=== PATIENT | female | born 1940 | race Caucasian/White ===

== ENCOUNTER 2017-12-19 17:21 | Emergency (ER) | payer OTHER ==
[2017-12-19 19:02] LABS: ABS Basophils 0 10^3/ul (0-0.2); ABS Eosinophils 0.2 10^3/ul (0-0.6); ABS Lymphocytes 0.9 10^3/ul (1.0-4.8); ABS Monocytes 0.5 10^3/ul (0-0.8); ABS Neutrophils 4.3 10^3/ul (1.5-7.7); ABS Nucleated RBC 0 10^3/ul; Eosinophil % 3.3 % (0-6); Hematocrit 42 % (35-47); Hemoglobin 14.6 g/dl (12.0-16.0); Lymphocyte % 15.4 % (25-47); Mean Corpuscular HGB Conc 35 g/dl (31-36); Mean Corpuscular Hemoglobin 33 pg (27-31); Mean Corpuscular Volume 94 fL (80-97); Mean Platelet Volume 8.3 um3 (7.4-10.4); Nucleated Red Blood Cells % 0.1; Platelet Count 175 10^3/ul (150-450); Red Blood Count 4.46 10^6/ul (4.00-5.40); Red Cell Distribution Width 14 % (10.5-15); White Blood Count 5.9 10^3/ul (3.5-10.8)
[2017-12-19 19:13] LABS: EGFR Non-African American 59.5 (>60)
--- NOTE | 2017-12-19 20:16 | RAD ---
INDICATION: LEFT leg swelling, redness, rash. COMPARISON: No relevant prior exams available on the [facility] PACS for comparison. TECHNIQUE: Rowe scale, color Doppler, and spectral analysis of the deep veins of the LEFT lower extremity. Vessel compression, phasicity, and augmentation assessed. REPORT: The LEFT common femoral, great saphenous, profunda femoral, femoral, popliteal, peroneal, and posterior tibial veins are patent. Patency of the RIGHT common femoral vein documented. IMPRESSION: No evidence for LEFT lower extremity deep venous thrombosis.
--- NOTE | 2017-12-19 20:19 | ED ---
Lower Extremity - HPI Summary HPI Summary: Pt is a 77 y/o F w/ c/o left leg erythema, edema, and pain. Per triage, she notes that erythema has been present since last week. In room, she states that leg pain began, a few days ago. On triage, pain is rated 6/10. Yesterday, she states she measured a 102 fever which lasted 18 hours. Upon waking up this morning, she states that erythema has crawled up her leg and rash is present, all over her body. Pt notes she has finished taking prednisone 3 months for organizing PNA and that she also had a biopsy. She denies Hx of diabetes and states her right leg is presently fine. Pt is allergic to certain topical creams , sulfur medications, and penicillin. - History of Current Complaint Chief Complaint: EDExtremityLower Stated Complaint: LT LEG SWOLLEN Time Seen by Provider: 12/19/17 20:15 Hx Obtained From: Patient Onset of Pain: Days - "a few days ago" on left leg Onset/Duration: Weeks - per triage, states erythema began last week Severity Currently: Moderate Pain Intensity: 6 Pain Scale Used: 0-10 Numeric - 6/10 Location: Is Discrete @ - Erythema, edema and pain located at left leg. Pt reported erythema has migrated to "rest of body" sometime last night Associated Signs And Symptoms: Positive: Swelling - left leg, Redness - left leg , migration to "rest of body" sometime last night according to Pt, Fever - pt reports 102 fever yesterday, Other - left leg pain - Allergies/Home Medications Allergies/Adverse Reactions: Allergies Allergy/AdvReac Type Severity Reaction Status Date / Time dextromethorphan Allergy Rash Verified 12/19/17 17:39 [From Guiatuss] guaifenesin [From Guiatuss] Allergy Rash Verified 12/19/17 17:39 Penicillins Allergy Rash Verified 12/19/17 17:39 pseudoephedrine Allergy Rash Verified 12/19/17 17:39 [From Guiatuss] Sulfa (Sulfonamide Allergy Hives Verified 12/19/17 17:39 Antibiotics) PMH/Surg Hx/FS Hx/Imm Hx Endocrine/Hematology History: Reports: Hx Thyroid Disease Cardiovascular History: Reports: Hx Hypertension Infectious Disease History: No Infectious Disease History: Denies: Traveled Outside the [place] in Last 30 Days - Family History Known Family History: Negative: Blood Disorder - Social History Alcohol Use: None Substance Use Type: Reports: None Smoking Status (MU): Never Smoked Tobacco Review of Systems Positive: Fever - on triage, 98.2 Cardiovascular: Negative Respiratory: Negative Positive: Other - Left leg erythema, pain, and edema. Pt reports migration of erythema to "rest of body" sometime last night All Other Systems Reviewed And Are Negative: Yes Physical Exam - Summary Physical Exam Summary: Appearance: Well-appearing, Well-nourished, lying in bed comfortably Skin: Left leg erythema and swelling above ankle and below thigh, no fluctuance nor lymphangitic streaking Eyes: sclera anicteric, no conjunctival pallor ENT: mucous membranes moist, pharynx appears normal Neck: Supple, nontender Respiratory: Clear to auscultation, no signs of respiratory distress Cardiovascular: Normal S1, S2. No murmurs. Normal distal pulses in tibial and radial bilaterally. Abdomen: Soft, nontender, normal active bowel sounds present Musculoskeletal: Normal, Strength/ROM Intact Neurological: A&Ox3, awake and alert, mentation is normal, speech is fluent and appropriate Psychiatric: affect is normal, does not appear anxious or depressed Triage Information Reviewed: Yes Vital Signs On Initial Exam: Initial Vitals Temp Pulse Resp BP Pulse Ox 98.2 F 74 17 131/69 96 12/19/17 17:34 12/19/17 17:34 12/19/17 17:34 12/19/17 17:34 12/19/17 17:34 Vital Signs Reviewed: Yes Diagnostics - Vital Signs Vital Signs Temp Pulse Resp BP Pulse Ox 12/19/17 19:30 98.8 F 66 16 124/72 98 12/19/17 17:34 98.2 F 74 17 131/69 96 - Laboratory Lab Results: Lab Results 12/19/17 12/19/17 12/19/17 Range/Units 18:49 18:49 19:59 WBC 5.9 (3.5-10.8) 10^3/ul RBC 4.46 (4.00-5.40) 10^6/ul Hgb 14.6 (12.0-16.0) g/dl Hct 42 (35-47) % MCV 94 (80-97) fL MCH 33 H (27-31) pg MCHC 35 (31-36) g/dl RDW 14 (10.5-15) % Plt Count 175 (150-450) 10^3/ul MPV 8.3 (7.4-10.4) um3 Neut % (Auto) 72.1 (38-83) % Lymph % (Auto) 15.4 L (25-47) % [place] % (Auto) 8.6 H (0-7) % Eos % (Auto) 3.3 (0-6) % Baso % (Auto) 0.6 (0-2) % Absolute Neuts (auto) 4.3 (1.5-7.7) 10^3/ul Absolute Lymphs (auto) 0.9 L (1.0-4.8) 10^3/ul Absolute Monos (auto) 0.5 (0-0.8) 10^3/ul Absolute Eos (auto) 0.2 (0-0.6) 10^3/ul Absolute Basos (auto) 0 (0-0.2) 10^3/ul Absolute Nucleated RBC 0 10^3/ul Nucleated RBC % 0.1 Sodium 138 (135-145) mmol/L Potassium 4.4 (3.5-5.0) mmol/L Chloride 100 L (101-111) mmol/L Carbon Dioxide 27 (22-32) mmol/L Anion Gap 11 (2-11) mmol/L BUN 22 (6-24) mg/dL Creatinine 0.92 (0.51-0.95) mg/dL Est GFR ( Amer) 72.0 (>60) Est GFR (Non-Af Amer) 59.5 (>60) BUN/Creatinine Ratio 23.9 H (8-20) Glucose 92 (70-100) mg/dL Lactic Acid 1.6 (0.5-2.0) mmol/L Calcium 9.8 (8.6-10.3) mg/dL Total Bilirubin 1.00 (0.2-1.0) mg/dL AST 18 (13-39) U/L ALT 14 (7-52) U/L Alkaline Phosphatase 56 (34-104) U/L C-Reactive Protein 183.99 H (<8.01) mg/L Total Protein 6.9 (6.4-8.9) g/dL Albumin 4.3 (3.2-5.2) g/dL Globulin 2.6 (2-4) g/dL Albumin/Globulin Ratio 1.7 (1-3) Result Diagrams: 12/19/17 18:49 12/19/17 18:49 Lab Statement: Any lab studies that have been ordered have been reviewed, and results considered in the medical decision making process. Re-Evaluation - Re-Evaluation First Eval Re-Evaluation Time: 20:30 Comment: Pt informed of diagnosis and told they would be discharged Lower Extremity Course/Dx - Diagnoses Provider Diagnoses: Cellulitis and abscess of left lower extremity Discharge - Sign-Out/Discharge Documenting (check all that apply): Patient Departure - Discharge Plan Condition: Good Disposition: HOME Prescriptions: Cephalexin CAP* [Keflex CAP*] 500 mg PO TID #30 cap Clindamycin Cap(NF) [Clindamycin Cap 300 mg Cap(NF)] 300 mg PO TID #30 cap Patient Education Materials: Cellulitis (ED) Referrals: Edmond Urena MD [Primary Care Provider] - - Billing Disposition and Condition Condition: GOOD Disposition: Home
[2017-12-19] MEDS ORDERED: Clindamycin CAP* 150 MG PO ONE (20:23)
[2017-12-19] MEDS ORDERED: Cephalexin CAP* 500 MG PO ONE (20:24)
[2017-12-19 21:07] VITALS: BP 131/71
== END 2017-12-19 21:07 | disposition home or self-care (01) ==
LOC: ED 17:21
DX: L03.116 Cellulitis of left lower limb (principal); Z88.8 Allergy status to other drugs, medicaments and biological substances; Z88.0 Allergy status to penicillin
CPT/HCPCS: 36415; 80053; 83605; 85025; 86140; 87040; 99283; A9270-GY

== ENCOUNTER 2019-03-24 04:55 | Emergency (ER) | payer OTHER ==
[2019-03-24] MEDS ORDERED: Bupivacaine 0.25% SDV PF* 10 ML VIAL INJ ONE (05:08)
--- NOTE | 2019-03-24 05:09 | ED ---
Laceration/Wound HPI - HPI Summary HPI Summary: 78 year [facility] F [facility] accompanied by complains of laceration on the left anterior lower extremity after tripping while walking dog and injuring her left lower extremity on top of a pointy rock at 23:00 yesterday 03/24/19. Patient states she applied dressing and tried elevating her left lower extremity. Patient states that the laceration will not stopped bleeding. Symptoms aggravated by nothing. Symptoms alleviated by nothing. Patient takes Xarelto. - History of Current Complaint Stated Complaint: LEG INJURY PER PT Hx Obtained From: Patient Mechanism of Injury: Other - tripping while walking dog and injuring her left lower extremity on top of a pointy rock Onset/Duration: Lasting Hours - 6 Aggravating: Nothing Alleviating: Nothing Timing: Constant Related Hx: Other - Xarelto - Allergy/Home Medications Allergies/Adverse Reactions: Allergies Allergy/AdvReac Type Severity Reaction Status Date / Time cephalexin [From Keflex] Allergy Swelling Verified 03/24/19 05:04 clindamycin Allergy Swelling Verified 03/24/19 05:04 dextromethorphan Allergy Rash Verified 03/24/19 05:04 [From Guiatuss] guaifenesin [From Guiatuss] Allergy Rash Verified 03/24/19 05:04 Penicillins Allergy Rash Verified 03/24/19 05:04 pseudoephedrine Allergy Rash Verified 03/24/19 05:04 [From Guiatuss] Sulfa (Sulfonamide Allergy Hives Verified 03/24/19 05:04 Antibiotics) Home Medications: Home Medications Rivaroxaban TAB(*) [Xarelto 20 mg] 20 mg PO DAILY 03/24/19 [History Confirmed ] Rosuvastatin (NF) [Crestor (NF)] 20 mg PO DAILY 03/24/19 [History Confirmed ] PMH/Surg Hx/FS Hx/Imm Hx Endocrine/Hematology History: Reports: Hx Thyroid Disease - hypo Cardiovascular History: Reports: Hx Atrial Fibrillation, Hx Hypercholesterolemia , Hx Hypertension - Surgical History Surgery Procedure, Year, and Place: tonsillectomy. appendectomy. bowel obstruction. bilateral breast biopsy Infectious Disease History: No Infectious Disease History: Denies: Traveled Outside the US in Last 30 Days - Family History Known Family History: Positive: Cardiac Disease - CAD in both parents - Social History Alcohol Use: Daily Alcohol Amount: 1 beverage Substance Use Type: Reports: None Hx Tobacco Use: Yes Smoking Status (MU): Former Smoker Review of Systems Negative: Fever Positive: Other - laceration on the left anterior lower extremity All Other Systems Reviewed And Are Negative: Yes Physical Exam - Summary Physical Exam Summary: Appearance: Well-appearing, Well-nourished, lying in bed comfortable Skin: Warm, dry, no obvious rash, 6 cm flap laceration of the left anterior leg Eyes: sclera anicteric, no conjunctival pallor ENT: mucous membranes moist Neck: deferred Respiratory: No signs of respiratory distress Cardiovascular: Appears well perfused, pulses are nml Abdomen: deferred Musculoskeletal: Moving all 4 extremities without obvious discomfort Neurological: Awake and alert, mentation is normal, speech is fluent and appropriate Psychiatric: affect is normal, does not appear anxious or depressed Triage Information Reviewed: Yes Vital Signs On Initial Exam: Initial Vitals Temp Pulse Resp BP Pulse Ox 98.7 F 63 16 135/67 97 03/24/19 04:56 03/24/19 04:56 03/24/19 04:56 03/24/19 04:56 03/24/19 04:56 Vital Signs Reviewed: Yes Procedures - Sedation Patient Received Moderate/Deep Sedation with Procedure: No - Laceration/Wound Repair 1 Location: lower extremity - left Anesthesia: Local - 0.25% bupivacaine without epinephrine Irrigated w/ Saline (ccs): 80 Closure: Single Layer Suture Type: Other - 3-o ethilon Number of Sutures: 5 Diagnostics - Vital Signs Vital Signs Temp Pulse Resp BP Pulse Ox 03/24/19 04:56 98.7 F 63 16 135/67 97 - Laboratory Lab Statement: Any lab studies that have been ordered have been reviewed, and results considered in the medical decision making process. Laceration Repair Course/Dx - Course Course Of Treatment: 78 year old F complains of laceration on the left anterior lower extremity after tripping while walking dog and injuring her left lower extremity on top of a pointy rock at 23:00 yesterday 03/24/19. Physical exam findings: 6 cm flap laceration of the left anterior leg. In the ED course, the laceration was repaired. See suture procedure note. Patient will be discharged home with follow up her primary care provider. She was instructed to have her wound rechecked in 2 days and sutures out in 10 days. She was instructed on how to maintain bandage dressing. Patient was instructed to return to Emergency Department for new or worsening symptoms. Patient understands and is agreeable to this plan. - Clinical Impression Provider Diagnoses: Laceration of left lower leg Discharge ED - Sign-Out/Discharge Documenting (check all that apply): Patient Departure - Discharge - Discharge Plan Condition: Good Disposition: HOME Patient Education Materials: Care For Your Stitches (ED), Laceration (ED) Referrals: Amor MAY,Domingo Alberto [Primary Care Provider] - Additional Instructions: I would like your regular provider to take a look at the wound in 2-3 days to make sure there is no developing infection and see how the healing is starting. The sutures will need to stay in place for about 10 days. Leave the current dressing on through tomorrow morning, at that point you can change it. If the dressing soaks through you will need to redress it, again using gauze and bandage wrap to maintain some pressure on the wound to minimize bleeding. However I think the dressing will be fine for a day. After taking it off, if it is dry and there is no further bleeding you can just cover it with a large bandage, but if there is still bleeding reapply a pressure dressing. - Billing Disposition and Condition Condition: GOOD Disposition: Home - Attestation Statements Document Initiated by Fariba: Yes Documenting Scribe: Pat Stringer Provider For Whom Fariba is Documenting (Include Credential): Terence Jordan MD Scribe Attestation: IPat, scribed for Terence Jordan MD on 03/27/19 at 1929. Scribe Documentation Reviewed: Yes Provider Attestation: The documentation as recorded by the Pat le accurately reflects the service I personally performed and the decisions made by me, Terence Jordan MD Status of Scribannalee Document: Viewed
--- OUTSIDE RECORDS SUMMARY | 2019-03-24 05:18 | XMS REPORT | Summary of Care ---
:1940 Author Organization [facility] Address [address] [facility] [place] [address] Care Team Providers Name Role Phone Domingo Chinchilla MD Primary Care Provider Reason for Referral Sleep Study (Routine) Status Reason Specialty Diagnoses / Referred By Referred To Procedures Contact Contact Pending Review Sleep Disorder Diagnoses Paroxysmal atrial fibrillation (HCC) [facility] ROSALINA Mayers [address] [place] [id number] Phone: Scheduling Instructions This order is to be used to begin the process for the patient to have a Sleep Study performed. If you wish to have the patient evaluated by a Sleep Specialist, please place a "Refer Sleep Medicine Specialist" order. If you have questions, please contact our Patient Coordinators: Rizwan: Kadi: Prieto: ([phone] or Reason for Visit Reason Comments Follow Up pt presents in office for 6mon f/u history of PAF and hyperlipedimia lipid 11/06/18. Pt had two episodes of afib that lasted 2-3hrs late spring and this summer(pt does not know exact dates) overall has been feeling well Encounter Details Date Type Department Care Team Description 02/18/2019 Office Visit Riana Lucia, Paroxysmal atrial fibrillation (HCC) (Primary Dx); Cardiology CUTTING MACHINE OPERATOR HELPER Dyslipidemia; [address] [facility] [place] [address] [place] [address] [phone] Allergies Active Allergy Reactions Severity Noted Date Comments Tape: Silk Or Adhesive Hives 02/17/2010 blisters Clindamycin Swelling 10/13/2008 Legs were painful, slightly swollen and firey red in color. Fluocinonide Rash 11/15/2009 Fosamax GI Reaction 01/30/2008 Hydrocortisone, Topical Other 06/18/2017 Local skin reaction Keflex Hives 01/04/2018 Penicillins Other Low 10/08/2006 "FLUSHED" note 10/08/2006 but today, 01/01/2018, patient states she was told she may have had a rash when she took penicillin over 50 years ago. She can not recall any reaction to penicillin. She just finished a 10 day course of cephalexin this month without incident. Sulfa Antibiotics Hives 08/23/2008 documented as of this encounter (statuses as of 02/18/2019) Medications Medication Sig Dispensed Refills Start Date End Date Status Calcium Take 1 Tab by 30 8 05/26/2009 Active Carbonate-Vitamin D mouth TWO TIMES 600-200 MG-UNIT Oral DAILY WITH TabIndications: MEALS. Osteoporosis, unspecified levothyroxine Take 1 Tab by 90 Tab 5 03/19/2018 03/19/2019 Active (SYNTHROID\\UNITHROID) mouth BEFORE 100 MCG Oral Tab BREAKFAST. Additional information Patient taking differently: 88 mcg Oral PRE BREAKFAST, Reported on 12/22/2018 9:14 AM hydrocortisone (HYTONE) 2.5 % Apply Apply thinly on the 15 g 0 05/09/2018 Active externally CreamIndications: left upper eyelid rash Periorbital dermatitis once daily for 1-2 weeks at a time Additional information Patient taking differently: PRN, Apply thinly on the left upper eyelid rash once daily for 1-2 weeks at a time, Reported on 06/26/2018 1:13 PM clotrimazole (LOTRIMIN) 1 % 4 drops in both ears 60 mL 0 06/26/2018 Active Apply externally Solution daily for 1 week mupirocin (BACTROBAN) 2 % Apply Apply to left leg wound 22 g 1 07/08/2018 Active externally OintmentIndications: twice daily until Wound infection healed. Rosuvastatin Calcium (CRESTOR) Take 1 Tab by mouth 90 Tab 3 07/09/2018 Active 20 MG Oral TabIndications: DAILY. Dyslipidemia rivaroxaban (XARELTO) 20 MG Oral Take 1 Tab by mouth 90 Tab 3 07/18/2018 Active Tab DAILY. metoprolol succinate (TOPROL XL) Take 1 Tab by mouth 90 Tab 3 10/06/2018 Active 50 MG Oral TABLET SR 24 HR DAILY. documented as of this encounter (statuses as of 02/18/2019) Active Problems Problem Noted Date Chronic pain of right knee 10/03/2018 Recurrent left pleural effusion 03/25/2018 Age-related osteoporosis without current pathological fracture 03/07/2018 Pharyngeal dysphagia 01/09/2018 Retropharyngeal abscess 01/01/2018 Overview: No respiratory distress, Soft diet with aspiration precautions CT Neck on admission: Hypodense collection in retropharyngeal region - possible abscess? IV solumedrol 125 mg x 1in ED, Continue IV Solumedrol 60 mg Q6H - can taper down Started on Unasyn 3 gram q6H at this time ( Patient has used PCN in past without issues from Chart review) ENT consulted and following - no significant findings on scope at Bedside S/P thoracotomy 08/08/2017 Overview: 08/07/2017. Bronchoscopy, left VATS, biopsy 2 of the left lower lobe, mini thoracotomy for hemostasis. Dr. 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 Seeing Dr. Spangler. Paroxysmal atrial fibrillation 02/17/2010 Overview: Tele-monitoring Continue Xarelto and Metoprolol XL at this time Insomnia 08/18/2009 GERD (gastroesophageal reflux disease) 05/11/2008 Overview: Continue Protonix Chronic diffuse otitis externa of both ears 01/21/2008 Overview: With exposed bone/osteitis Mixed hyperlipidemia 08/27/2006 Sensorineural hearing loss, bilateral 07/08/2006 Colon Polyps 02/28/2006 Overview: Polypectomy 2000 Normal colonoscopy 2002. Polypectomy X2 03/17. Other specified hypothyroidism 03/13/2005 Overview: Continue Synthroid Mammographic microcalcification 08/15/2004 Overview: Mammogram 08/25/09, at [facility] documented as of this encounter (statuses as of 02/18/2019) Resolved Problems Problem Noted Date Resolved Date Sorethroat 01/09/2018 03/19/2018 Dysphagia 01/01/2018 03/19/2018 Overview: Aspiration precautions with soft diet Osteoporosis 06/17/2014 03/07/2018 Palpitations 02/17/2010 05/21/2012 Tear of medial cartilage or meniscus of knee, current 01/23/2008 05/21/2012 Sprain of cruciate ligament of knee 01/23/2008 05/21/2012 Overweight(278.02) 08/27/2006 05/21/2012 Overview: mildly Osteoporosis 02/28/2006 05/21/2012 UNSPECIFIED CLOSED FRACTURE OF CARPAL BONE 03/19/2005 05/21/2012 documented as of this encounter (statuses as of 02/18/2019) Immunizations Name Administration Dates Next Due Boostrix 03/03/2013 H1N1 Injectable Adult 05/26/2009 Influenza (IM) Preservative Free 04/08/2015, 02/25/2013, 03/15/2008 Influenza Vaccine High Dose 03/19/2018, 04/05/2017, 03/01/2016, 04/08/2015, 04/07/2014 Influenza Virus Vaccine Pres Free 6-35 02/28/2012 Months PNEUMOCOCCAL POLYSACCHARIDE VACCINE 03/15/2008 Pneumococcal Conjugate(13 Valent) 03/28/2016 ZOSTER (ZOSTAVAX) VACCINE 05/17/2010 documented as of this encounter Social History Tobacco Use Types Packs/Day Years Used Date Former Smoker Cigarettes 3 Quit: 06/10/1963 Smokeless Tobacco: Never Used Alcohol Use Drinks/Week oz/Week Comments Yes 2 Glasses of wine 2.0 2 glasses wine per week Sex Assigned at Date Recorded Not on file Job Start Date Occupation Industry Not on file Not on file Not on file Travel History Travel Start Travel End No recent travel history available. documented as of this encounter Last Filed Vital Signs Vital Sign Reading Time Taken Comments Blood Pressure 110/54 02/18/2019 10:03 AM EDT Pulse 66 02/18/2019 10:03 AM EDT Temperature - - Respiratory Rate - - Oxygen Saturation 97% 02/18/2019 10:03 AM EDT Inhaled Oxygen Concentration - - Weight 69.4 kg (153 lb) 02/18/2019 10:03 AM EDT Height 161.3 cm (5' 3.5") 02/18/2019 10:03 AM EDT Body Mass Index 26.68 02/18/2019 10:03 AM EDT documented in this encounter Patient Instructions Patient InstructionsHuRiana tam CRNP - 02/18/2019 10:00 AM EDTWill arrange sleep study Follow up with Dr. Christie in 6 months with EKG documented in this encounter Plan of Treatment Date Type Specialty Care Team Description 04/22/2019 Office Visit Otorhinolaryngology Mariola Islas PA-C [address] [place] [address] 06/26/2019 Office Visit Dermatology Carol Waters MD [address] [place] [address] 07/22/2019 Office Visit Cardiology Jj Christie MD [address] [place] [address] [phone] 12/25/2019 Office Visit Dermatology Carol Waters MD [address] [place] [address] Name Type Priority Associated Diagnoses Order Schedule REFER TO SLEEP STUDY Referral Routine Paroxysmal atrial Ordered: 02/18/2019 LAB fibrillation (HCC) Health Maintenance Due Date Last Done Comments DEPRESSION SCREENING 1954 HIV SCREENING 1957 FALL RISK ASSESSMENT 2007 PAP SMEAR 08/22/2007 08/21/2006, 07/21/2004, 06/18/2003, Additional history exists ZOSTER IMMUNIZATION SERIES 07/12/2010 05/17/2010 (2 of 3) MEDICARE ANNUAL WELLNESS 03/11/2014 03/11/2013 VISIT INFLUENZA VACCINE (#1) 2019 03/19/2018, 04/05/2017, 03/01/2016, Additional history exists COLONOSCOPY SCREENING 02/20/2022 02/20/2017, 07/24/2011, 07/24/2011, Additional history exists LIPID DISORDER SCREENING 11/07/2023 11/06/2018, 07/09/2018, 03/11/2018, Additional history exists OSTEOPOROSIS SCREENING 03/11/2028 03/11/2018, 06/21/2015, 05/20/2014, Additional history exists PNEUMOCOCCAL 65+YRS Completed 03/28/2016, 03/15/2008 HPV IMMUNIZATION SERIES Aged Out No longer eligible based on patient's age to complete this topic MENINGOCOCCAL VACCINE IMM Aged Out No longer eligible based on patient's age to complete this topic documented as of this encounter Implants Implanted Type Area Work Adjustment Instructor Device Shelf Model / Serial Identifier Expiration / Lot Date Toric Lens 23 Diopter Right: CLEO [id number] / Implanted: Qty: 1 on 04/19/2014 at [facility] / [id number] Tor[employer] Lens 17.5 D Left: CLEO [id number] / Implanted: Qty: 1 on 04/26/2014 at [facility] [id number] / documented as of this encounter Results Not on filedocumented in this encounter Visit Diagnoses Diagnosis Paroxysmal atrial fibrillation (HCC) - Primary Atrial fibrillation Dyslipidemia Other and unspecified hyperlipidemia Sleep-disordered breathing Other sleep disturbances documented in this encounter Insurance Payer Benefit Plan / Subscriber ID Effective Dates Phone Address Type Group AETNA MEDICARE AETNA MEDICARE xxxxxxxx 2017-Present [employer] ADVANTAGE ADVANTAGE Guarantor Name Account Type Relation to Date of Phone Billing Address Patient Kathie Archibald Personal/Famil 1940 [id number] [phone] [place] (Work) [id number] documented as of this encounter
--- OUTSIDE RECORDS SUMMARY | 2019-03-24 05:18 | XMS REPORT | Summary of Care ---
:1940 Author Organization [facility] Address [address] [address] Care Team Providers Name Role Phone Domingo Chinchilla MD Primary Care Provider Encounter Details Date Type Department Care Team Description 02/10/2019 Hospital Encounter [place] [facility] [address] [address] Allergies Active Allergy Reactions Severity Noted Date [...] as of this encounter (statuses as of 02/12/2019) Medications Medication Sig Dispensed Refills Start Date [...] as of this encounter (statuses as of 02/12/2019) Active Problems Problem Noted Date Chronic pain [...] agents 05/28/2017 Presence of intraocular lens 05/28/2017 manager terminal current use of anticoagulant therapy 02/08/2012 Overview: Managed by [facility], referred by Dr Urena, Dx: [...] bilateral 07/08/2006 Colon Polyps 02/28/2006 Overview: Polypectomy 1999 Normal colonoscopy 2002. Polypectomy X2 03/17. Other specified hypothyroidism 03/13/2005 Overview: Continue Synthroid Mammographic microcalcification 08/15/2004 Overview: Mammogram 08/25/09, at [facility] documented as of this encounter (statuses as of 02/12/2019) Resolved Problems Problem Noted Date Resolved Date [...] as of this encounter (statuses as of 02/12/2019) Immunizations Name Administration Dates Next Due Boostrix [...] of this encounter Last Filed Vital Signs Not on filedocumented in this encounter Plan of Treatment Date Type Specialty Care Team Description 02/18/2019 Office Visit Cardiology Riana Sabillon CRNP [address] [address] 04/22/2019 Office Visit Otorhinolaryngology Mariola Islas PA-C [address] [address] 06/26/2019 Office Visit Dermatology Carol Waters MD [address] [address] 12/25/2019 Office Visit Dermatology Carol Waters MD [address] [address] Health Maintenance Due Date Last Done Comments [...] of this encounter Implants Implanted Type Area Quality Reviewer Device Shelf Model / Serial Identifier Expiration / Lot Date Toric Lens 23 Diopter Right: CLEO [id number] / Implanted: Qty: 1 on 04/19/2014 at [facility] / [id number] Toric Lens 17.5 D Left: CLEO [id number] / Implanted: Qty: 1 on 04/26/2014 at [facility] [id number] / documented as of this encounter Procedures Procedure Name Priority Date/Time Associated Diagnosis Comments XR CHEST 2 VIEW PA Routine 02/10/2019 10:04 AM Cryptogenic Results for this AND LATERAL EDT organizing pneumonia procedure are in (STANDARD) (HCC) the results section. documented in this encounter Results XR CHEST 2 VIEW PA AND LATERAL (STANDARD) (02/10/2019 10:04 AM EDT) Specimen Impressions Performed At 1. No acute cardiopulmonary disease is seen. Urgency: Routine. This is a routine medical imaging report. Recommendation: No specific imaging recommendation. Signed by Srinivasa Jones MD, MHA, FCPS on 02/10/2019 10:48 AM Narrative Performed At Procedure(s): XR CHEST 2 VIEW PA AND LATERAL (STANDARD) Date of service: 02/10/2019 9:56 AM Provided clinical information: 78 years, Female, "f/u organizing pneumonia" Procedure and materials: Standard protocol. Procedure: CHEST 2 VIEWS Technique: PA and lateral views of the chest were acquired. Comparison: Chest x-ray of 08/01/2018 Findings: There is no confluent pulmonary parenchymal opacity seen. Left perihilar surgical sutures are seen Cardioaortic silhouette appears unremarkable. There is normal pulmonary vascularity. The angelic are normal. No pleural effusion is seen. No pneumothorax is seen. Trachea midline. Mild endplate remodeling is seen of thoracic spine. No acute bony abnormality is seen. Procedure Note Interface, Rad Results - 02/10/2019 10:50 AM EDT Procedure(s): XR CHEST 2 VIEW PA AND LATERAL (STANDARD) Date of service: 02/10/2019 9:56 AM Provided clinical information: 78 years, Female, "f/u organizing pneumonia" Procedure and materials: Standard protocol. Procedure: CHEST 2 VIEWS Technique: PA and lateral views of the chest were acquired. Comparison: Chest x-ray of 08/01/2018 Findings: There is no confluent pulmonary parenchymal opacity seen. Left perihilar surgical sutures are seen Cardioaortic silhouette appears unremarkable. There is normal pulmonary vascularity. The angelic are normal. No pleural effusion is seen. No pneumothorax is seen. Trachea midline. Mild endplate remodeling is seen of thoracic spine. No acute bony abnormality is seen. IMPRESSION 1. No acute cardiopulmonary disease is seen. Urgency: Routine. This is a routine medical imaging report. Recommendation: No specific imaging recommendation. Signed by Srinivasa Jones MD, MHA, FCPS on 02/10/2019 10:48 AM documented in this encounter Visit Diagnoses Diagnosis Cryptogenic organizing pneumonia (HCC) Cryptogenic organizing pneumonia documented in this encounter Insurance Payer Benefit Plan / Subscriber ID Effective Dates Phone Address Type Group AETNA MEDICARE AETNA MEDICARE xxxxxxxx 2017-Present [employer] ADVANTAGE ADVANTAGE Guarantor Name Account Type Relation to Date of Phone Billing Address Patient Kathie Archibald Personal/Famil 1940 [id number] [phone] [place], [place] (Work) [phone] documented as of this encounter
--- OUTSIDE RECORDS SUMMARY | 2019-03-24 05:18 | XMS REPORT | Summary of Care ---
:1940 Author Organization [facility] Address [address] [place] [address] Care Team Providers Name Role Phone Domingo Chinchilla MD Primary Care Provider Reason for Visit Reason Comments Interstitial Lung Disease Follow Up MYSQL DEVELOPER Encounter Details Date Type Department Care Team Description 02/10/2019 Office Visit [facility] Fred Almaraz MD Cryptogenic organizing [address] pneumonia (HCC) [address] [place] [id number] [address] [place] [address] (Primary Dx) [phone] Allergies Active Allergy Reactions Severity Noted Date [...] as of this encounter (statuses as of 02/10/2019) Medications Medication Sig Dispensed Refills Start Date [...] as of this encounter (statuses as of 02/10/2019) Active Problems Problem Noted Date Chronic pain [...] agents 05/28/2017 Presence of intraocular lens 05/28/2017 group home current use of anticoagulant therapy 02/08/2012 Overview: Managed by [facility], referred by Dr Urena, Dx: [...] Mammographic microcalcification 08/15/2004 Overview: Mammogram 08/25/09, at [facility] documented as of this encounter (statuses as of 02/10/2019) Resolved Problems Problem Noted Date Resolved Date [...] as of this encounter (statuses as of 02/10/2019) Immunizations Name Administration Dates Next Due Boostrix [...] Sign Reading Time Taken Comments Blood Pressure 118/80 02/10/2019 10:09 AM EDT Pulse 65 02/10/2019 10:09 AM EDT Temperature 36.4 02/10/2019 10:09 AM EDT C (97.5 F) Respiratory Rate - - Oxygen Saturation 98% 02/10/2019 10:09 AM EDT RA Inhaled Oxygen Concentration - - Weight 69.4 kg (153 lb) 02/10/2019 10:09 AM EDT Height 161.3 cm (5' 3.5") 02/10/2019 10:09 AM EDT Body Mass Index 26.68 02/10/2019 10:09 AM EDT documented in this encounter Progress Notes Fred Almaraz MD - 02/10/2019 10:20 AM EDT PATIENT: Kathie Archibald : 1940 DATE OF SERVICE: 02/10/2019 SUBJECTIVE: Kathie Archibald is a 78-y.o. female who returns for follow up of her organizing pneumonia with areas ofacute lung injury and some granulomatous changes found on surgical lung biopsy as well as a postbiopsy left pleural effusion. The patient is doing well. She is not having any significant cough. Thepatient has no increased dyspnea. She has been off of prednisone for between 11 and 12 months. SMOKING: Remote smoking history. MEDICATIONS: Calcium Carbonate-Vitamin D 600-200 MG-UNIT Oral Tab clotrimazole (LOTRIMIN) 1 % Apply externally Solution hydrocortisone (HYTONE) 2.5 % Apply externally Cream levothyroxine (SYNTHROID\\UNITHROID) 100 MCG Oral Tab metoprolol succinate (TOPROL XL) 50 MG Oral TABLET SR 24 HR mupirocin (BACTROBAN) 2 % Apply externally Ointment rivaroxaban (XARELTO) 20 MG Oral Tab Rosuvastatin Calcium (CRESTOR) 20 MG Oral Tab OBJECTIVE: General: Well-developed, overweight elderly woman in no significant distress. VS: BP 118/80 | Pulse 65 | Temp 97.5 F (36.4 C) (Temporal) | Ht 5' 3.5" (1.613 m) | Wt 153 lb (69.4 kg) | SpO2 98% Comment: RA | BMI 26.68 kg/m RR: No tachypnea. HEENT: The oropharynx is clear. Chest: The chest wall is symmetric. Breath sounds are good intensity and clear. Heart: Regular rate and rhythm. Extremities: No lower extremity edema. STUDIES: Chest radiograph from today was reviewed. This shows no change in the previously noted nodular opacities. There are no new parenchymal lung opacities. ASSESSMENT/PLAN: 1. Organizing pneumonia with areas of acute lung injury and some granulomatous changes. The patienthas had no evidence of recurrence off of prednisone for nearly a year. 2. Lung nodules. There is no evidence of progressive change. The patient is doing well without evidence of recurrent organizing pneumonia. She will return to pulmonary clinic as needed. Author: Fred Almaraz MD 02/10/2019 10:10 documented in this encounter Plan of Treatment Date Type Specialty Care Team Description 02/18/2019 Office Visit Cardiology Riana Sabillon CRNP [address] [id number] 04/22/2019 Office Visit Otorhinolaryngology Mariola Islas PA-C [address] [id number] 06/26/2019 Office Visit Dermatology Carol Waters MD [address] [facility] [address] [place] [address] 12/25/2019 Office Visit Dermatology Carol Waters MD [address] [facility] [address] [place] [address] Health Maintenance Due Date Last Done [...] of this encounter Implants Implanted Type Area Tobacco Dipper Device Shelf Model / Serial Identifier Expiration / Lot Date Toric Lens 23 Diopter Right: CLEO [id number] / Implanted: Qty: 1 on 04/19/2014 at [facility] / [id number] Toric Lens 17.5 D Left: CLEO [id number] / Implanted: Qty: 1 on 04/26/2014 at [facility] [id number] / documented as of this encounter Results Not on filedocumented in this encounter Visit Diagnoses Diagnosis Cryptogenic organizing pneumonia (HCC) - Primary Cryptogenic organizing pneumonia documented in this encounter Insurance Payer Benefit Plan / Subscriber ID Effective Dates Phone Address Type Group AETNA MEDICARE AET MEDICARE xxxxxxxx 2017-Present [employer] ADVANTAGE ADVANTAGE Guarantor Name Account Type Relation to Date of Phone Billing Address Patient Kathie Archibald Personal/Famil 1940 [id number] (Home) [facility] [phone] [place] (Work) [id number] documented as of this encounter
[2019-03-24 06:32] VITALS: BP 0/0
== END 2019-03-24 06:31 | disposition home or self-care (01) ==
LOC: ED 04:55
DX: S81.812A Laceration without foreign body, left lower leg, initial encounter (principal); W01.0XXA Fall on same level from slipping, tripping and stumbling without subsequent striking against object, initial encounter; Y93.K1 Activity, walking an animal; Y92.9 Unspecified place or not applicable; I48.91 Unspecified atrial fibrillation; Z79.01 Long term (current) use of anticoagulants; I10 Essential (primary) hypertension; E78.00 Pure hypercholesterolemia, unspecified; Z88.1 Allergy status to other antibiotic agents; Z88.0 Allergy status to penicillin; Z88.2 Allergy status to sulfonamides; Z88.8 Allergy status to other drugs, medicaments and biological substances; Z87.891 Personal history of nicotine dependence
CPT/HCPCS: 12002; 99282; J3490